=== PATIENT | female | born 1985 | race Caucasian/White ===

== ENCOUNTER 2016-11-10 10:17 | Emergency (ER) | END 2016-11-10 13:11 | disposition home or self-care (01) | DX: R05 Cough (principal) | CPT/HCPCS: Z7502; Z7610 ==

== ENCOUNTER 2016-11-16 17:49 | Emergency (ER) | payer OTHER ==
[~2016-11-16] VITALS: Wt 63.6 kg
[~2016-11-16 17:49] MED LIST: ALBU18HF INHALATION; AZIT250T94 PO; DIAZ10TA4 PO; HYDR-2457 PO; IBUP-1542 PO; NAPR-260 PO; NAPR-688 PO
--- NOTE | 2016-11-16 19:08 | ERD ---
ER Documentation Chief Complaint Date/Time DATE: 11/16/16 TIME: 19:07 Chief Complaint cough HPI 31-year-old female presents here in emergency department for complaints of cough for 1 week now, patient was seen here in emergency department, finished a course of azithromycin, was given cough medication albuterol to help with symptoms only with mild relief. Patient continues to have the symptoms. Patient hasn't having dry cough, does not cough any phlegm or blood. Patient is wheezing episodes at times. Patient denies any fever or chills. ROS All systems reviewed and are negative except as per history of present illness. Medications Home Meds Active Scripts Ibuprofen* (Motrin*) 600 Mg Tab, 600 MG PO Q6, #15 TAB Prov:FEDERICA GRUBBS MD 11/10/16 Albuterol Sulfate* (Ventolin HFA*) 18 Gm Hfa.aer.ad, 2 PUFF INHALATION Q4H, #1 INHALER Prov:FEDERICA GRUBBS MD 11/10/16 Azithromycin* (Zithromax*) 250 Mg Tablet, 250 MG PO .ZPACK DIRECTED, #6 TAB TAKE 500 MG (2 TABS) THE FIRST DAY THEN 250 MG (1 TAB) DAYS 2-5 Prov:FEDERICA GRUBBS MD 11/10/16 Naproxen* (Naprosyn*) 500 Mg Tablet, 500 MG PO BID Y for PAIN AND/OR INFLAMMATION, #30 TAB Prov:CRISTINA BONILLA PA-C 11/16/15 Ibuprofen* (Motrin*) 600 Mg Tab, 600 MG PO Q6, #30 TAB Prov:CRISTINA BONILLA PA-C 11/16/15 Reported Medications Hydrocodone Bit-Acetaminophen (Hydrocodone Bit-Acetaminophen) 1 Each Tablet, 1 EACH PO Q4 10/02/12 Diazepam* (Diazepam*) 10 Mg Tablet, 5 MG PO TID 10/02/12 Naproxen* (Naproxen*) 500 Mg Tablet, 500 MG PO BID 10/02/12 Allergies Allergies: Coded Allergies: No Known Drug Allergies (Verified Allergy, Unknown, 11/11/16) PMhx/Soc Medical and Surgical Hx: pt denies Medical Hx, pt denies Surgical Hx History of Surgery: No Anesthesia Reaction: No Hx Neurological Disorder: No Hx Respiratory Disorders: No Hx Cardiac Disorders: No Hx Psychiatric Problems: No Hx Miscellaneous Medical Probl: No Hx Alcohol Use: Yes Hx Substance Use: No Hx Tobacco Use: Yes Smoking Status: Current every day smoker FmHx Family History: No coronary disease, No diabetes, No other Physical Exam Vitals Vital Signs Date Time Temp Pulse Resp B/P Pulse Ox O2 Delivery O2 Flow Rate FiO2 11/16/16 17:53 98.3 86 20 123/94 100 Physical Exam GENERAL: The patient is well developed and appropriate for usual state of health, in no apparent distress. CHEST: Clear to auscultation bilaterally. There are no rales, wheezes or rhonchi. HEART: Regular rate and rhythm. No murmurs, clicks, rubs or gallops. No S3 or S4. ABDOMEN: Soft, nontender and nondistended. Good bowel sounds. No rebound or guarding. No gross peritonitis. No gross organomegaly or masses. No Hernández sign or McBurney point tenderness. BACK: No midline or flank tenderness. EXTREMITIES: Equal pulses bilaterally. There is no peripheral clubbing, cyanosis or edema. No focal swelling or erythema. Full range of motion. Grossly neurovascularly intact. NEURO: Alert and oriented. Cranial nerves 2-12 intact. Motor strength in all 4 extremities with 5/5 strength. Sensation grossly intact. Normal speech and gait. SKIN: There is no apparent rash or petechia. The skin is warm and dry. HEMATOLOGIC AND LYMPHATIC: There is no evidence of excessive bruising or lymphedema. No gross cervical, axillary, or inguinal lymphadenopathy. Results 24 hrs PROCEDURE: Portable chest x-ray. CLINICAL INDICATION: 31 years of age, female. Cough. TECHNIQUE: Portable AP view of the chest. COMPARISON: None available. FINDINGS: Cardiomediastinal contours are normal. Lungs are clear. Negative for pleural effusion or pneumothorax. No acute bony abnormality. IMPRESSION: Negative for evidence of acute chest process. Negative for an infiltrate. RPTAT: HCTS Physician Jenae Date Time Electronically viewed and signed by Physician Jenae on 11/16/2016 19: 19 CS/ CC: LEIGHA BEE NP Procedures/MDM Medical Decision Making: Patient symptoms are most likely consistent with acute bronchitis, which viral in origin. There is low suspicion for Pneumonia at this time since patients lungs sounds are clear, patient O2 saturation is normal and patient doesnt show any respiratory distress. Patients chest xray doesnt show infiltrates or any other cardiopulmonary emergencies at this time. There is low suspicion for other cardiopulmonary emergencies at this time such as CHF, Pulmonary Embolism, Pneumothorax, Aortic Aneurysm or any other cardiopulmonary emergencies at this time. There is low suspicion for sepsis. Patient appears well and is hemodynamically stable. Fever is controlled with medicines. Disposition: Home. Condition: Stable Prescriptions: Guaifenesin with codeine, albuterol, prednisone Instructions: Patient is advised to take medications as prescribed. Patient is advised to rest. Patient advised to increase fluid intake, do humidifier at home and if possible, do salt water gargles. Patient is advised that if symptoms are worse, shortness of breath, uncontrolled fever, stridor, vomiting, worst signs and symptoms to return to emergency department immediately. Otherwise, patient is advised to follow up with primary doctor in 5-7 days. Departure Diagnosis: Primary Impression: Acute bronchitis Bronchitis organism: unspecified organism Qualified Code: J20.9 - Acute bronchitis, unspecified organism Condition: Stable Patient Instructions: Bronchitis With Wheezing (Adult) Additional Instructions: atient is advised to take medications as prescribed. Patient is advised to rest. Patient advised to increase fluid intake, do humidifier at home and if possible, do salt water gargles. Patient is advised that if symptoms are worse, shortness of breath, uncontrolled fever, stridor, vomiting, worst signs and symptoms to return to emergency department immediately. Otherwise, patient is advised to follow up with primary doctor in 5-7 days. LEIGHA BEE NP Nov 16, 2016 19:05
--- NOTE | 2016-11-16 19:20 | RADRPT ---
PROCEDURE: Portable chest x-ray. CLINICAL INDICATION: 31 years of age, female. Cough. TECHNIQUE: Portable AP view of the chest. COMPARISON: None available. FINDINGS: Cardiomediastinal contours are normal. Lungs are clear. Negative for pleural effusion or pneumothorax. No acute bony abnormality. IMPRESSION: Negative for evidence of acute chest process. Negative for an infiltrate. RPTAT: HCTS Aamir Infante Physician Date Time Electronically viewed and signed by Aamir Infante Physician on 11/16/2016 19:19 CS/
[2016-11-16] MEDS ORDERED: GUAI473L22 PO (19:50)
[2016-11-16] MEDS ORDERED: PRED50TA PO (19:50)
[2016-11-16] MEDS ORDERED: ALBU8.5H3 INH (19:50)
[2016-11-16 20:03] VITALS: BP 134/102; PULSE 77; RESP 18
== END 2016-11-16 20:04 | disposition home or self-care (01) ==
LOC: FTE 17:49
DX: J20.9 Acute bronchitis, unspecified (principal); F17.210 Nicotine dependence, cigarettes, uncomplicated
CPT/HCPCS: 71010; Z7502